=== PATIENT | female | born 1960 | race Caucasian/White ===

== ENCOUNTER 2016-12-11 19:16 | Emergency (ER) | payer OTHER ==
[~2016-12-11] VITALS: Ht 152.4 cm; Wt 70.0 kg
[2016-12-11] MEDS ORDERED: METF850T2 PO (19:49)
[2016-12-11] MEDS ORDERED: MELO-273 PO (19:49)
[2016-12-11] MEDS ORDERED: OMEG100019 PO (19:49)
[2016-12-11] MEDS ORDERED: MET500 PO (19:49)
[2016-12-11] MEDS ORDERED: UNK HTN MED PO (19:49)
[2016-12-11 19:51] LABS: GLUCOSE,POINT OF CARE 139 MG/DL (70-110)
[2016-12-11] MEDS ORDERED: PROCHLORPERAZINE EDISYLATE 5 MG/ML 2 ML VIAL IVP ONE (20:15)
[2016-12-11] MEDS ORDERED: SODIUM CHLORIDE 0.9% 1,000 ML IV ONE (20:15)
[2016-12-11] MEDS ORDERED: DiphenhydrAMINE HCL 50 MG/ML VIAL IVP ONE (20:15)
[2016-12-11 20:29] LABS: BASOPHILS # (AUTO) 0.03 K/uL (0.00-0.20); BASOPHILS % (AUTO) 0.4 % (0.0-2.0); EOSINOPHILS # (AUTO) 0.06 K/uL (0.00-0.70); EOSINOPHILS % (AUTO) 0.82 % (1.0-6.0); HEMATOCRIT 36.4 % (36-46); HEMOGLOBIN 12.2 g/dL (12.0-16.0); LYMPHOCYTES # (AUTO) 1.6 K/uL (1.0-4.8); LYMPHOCYTES % (AUTO) 21.6 % (22.0-44.0); MEAN CORPUSCULAR HEMOGLOBIN 29.2 pg (26.0-34.0); MEAN CORPUSCULAR HGB CONC 33.5 G/dL (31.0-37.0); MEAN CORPUSCULAR VOLUME 87 fL (80-100); MONOCYTES # (AUTO) 0.6 K/uL (0.1-1.0); MONOCYTES % (AUTO) 8.3 % (2.0-9.0); NEUTROPHILS # (AUTO) 5.1 K/uL (1.8-7.7); NEUTROPHILS % (AUTO) 68.9 % (40.0-70.0); PLATELET COUNT (AUTO) 236 K/uL (150-450); RED BLOOD CELL COUNT(AUTO) 4.18 MIL/uL (4.00-5.20); WHITE BLOOD COUNT (AUTO) 7.3 K/uL (4.5-11.0)
[2016-12-11 20:37] LABS: ANION GAP 9 mmol/L (8-16); CALCIUM, TOTAL 10.1 mg/dL (8.8-10.5); CARBON DIOXIDE 28 mmol/L (22-29); CHLORIDE 104 mmol/L (98-107); CREATININE 0.85 mg/dL (0.60-1.30); GLOMERULAR FILTR. RATE CALC > 60 mL/min (>60); POTASSIUM 3.7 mmol/L (3.5-5.1); SODIUM SERUM 141 mmol/L (136-145); UREA NITROGEN, BLOOD 16 mg/dL (7-18)
[2016-12-11 20:43] LABS: ALANINE AMINOTRANSFERASE 70 U/L (12-78); ALBUMIN 4.1 g/dL (3.4-5.0); ASPARTATE AMINOTRANSFERASE 38 U/L (15-37); BILIRUBIN,TOTAL 0.8 mg/dL (0.1-1.0); TOTAL PROTEIN, SERUM 7.4 g/dL (6.4-8.2)
[2016-12-11 21:05] VITALS: BP 133/85
== END 2016-12-11 21:22 | disposition home or self-care (01) ==
LOC: EMS 19:19
DX: G43.909 Migraine, unspecified, not intractable, without status migrainosus (principal); I10 Essential (primary) hypertension; E11.9 Type 2 diabetes mellitus without complications; F17.210 Nicotine dependence, cigarettes, uncomplicated
CPT/HCPCS: 36415; 80053; 82962; 85025; 96361; 96374; 96375; 99284; J0780; J1200; J7030

== ENCOUNTER 2017-03-21 11:48 | Emergency (ER) | payer OTHER ==
[~2017-03-21] VITALS: Ht 152.4 cm; Wt 60.0 kg
[~2017-03-21 11:48] MED LIST: MELO-107 PO; MET500 PO; METF850T2 PO; OMEG-135 PO; UNK HTN MED PO
[2017-03-21 11:58] LABS: GLUCOSE,POINT OF CARE 125 MG/DL (70-110)
[2017-03-21 12:25] VITALS: BP 118/64
[2017-03-21] MEDS ORDERED: FLUORESCEIN SODIUM 1 MG STRIP ONE (12:38)
[2017-03-21] MEDS ORDERED: PROPARACAINE HCL 0.5% 15 ML OPHTHALMIC SOLUTION OS ONE (12:45)
== END 2017-03-21 13:28 | disposition home or self-care (01) ==
LOC: EMS 11:50
DX: H11.32 Conjunctival hemorrhage, left eye (principal); M19.90 Unspecified osteoarthritis, unspecified site; E11.9 Type 2 diabetes mellitus without complications; I10 Essential (primary) hypertension; E78.00 Pure hypercholesterolemia, unspecified; F17.210 Nicotine dependence, cigarettes, uncomplicated
CPT/HCPCS: 82962; 99283

== ENCOUNTER 2017-11-07 18:22 | Emergency (ER) | payer OTHER ==
[~2017-11-07] VITALS: Ht 154.9 cm; Wt 58.2 kg
[2017-11-07 19:40] VITALS: BP 114/76
== END 2017-11-07 19:56 | disposition home or self-care (01) ==
LOC: EMS 18:24
DX: N39.0 Urinary tract infection, site not specified (principal); E11.9 Type 2 diabetes mellitus without complications; E78.00 Pure hypercholesterolemia, unspecified; I10 Essential (primary) hypertension; M19.90 Unspecified osteoarthritis, unspecified site; F17.210 Nicotine dependence, cigarettes, uncomplicated; Z87.440 Personal history of urinary (tract) infections; Z79.899 Other long term (current) drug therapy; Z91.013 Allergy to seafood
CPT/HCPCS: 99283

== ENCOUNTER 2020-06-26 12:34 | Emergency (ER) | payer OTHER ==
[~2020-06-26] VITALS: Ht 149.9 cm; Wt 63.6 kg
[~2020-06-26 12:34] MED LIST changes: -MET500 PO; +METF-445 PO; -METF850T2 PO; +METH500T7 PO
[2020-06-26 12:44] VITALS: BP 125/40
[2020-06-26 13:00] LABS: GLUCOSE,POINT OF CARE 94 MG/DL (70-110)
[2020-06-26] MEDS ORDERED: LIDOCAINE 5% TRANSDERMAL PATCH TD ONE (14:30)
[2020-06-26] MEDS ORDERED: ACETAMINOPHEN 500 MG TABLET PO ONE (14:30)
[2020-06-26] MEDS ORDERED: KETOROLAC TROMETHAMINE 30 MG/ML VIAL IM ONE (14:30)
== END 2020-06-26 16:38 | disposition home or self-care (01) ==
LOC: EMS 12:34
DX: M51.36 Other intervertebral disc degeneration, lumbar region (principal); M43.16 Spondylolisthesis, lumbar region; M47.9 Spondylosis, unspecified; M53.3 Sacrococcygeal disorders, not elsewhere classified; G89.29 Other chronic pain; E11.9 Type 2 diabetes mellitus without complications; E78.00 Pure hypercholesterolemia, unspecified; I10 Essential (primary) hypertension; F17.210 Nicotine dependence, cigarettes, uncomplicated; Z79.84 Long term (current) use of oral hypoglycemic drugs
CPT/HCPCS: 72110; 72220; 82962; 96372; 99284; J1885

== ENCOUNTER 2021-09-21 05:17 | Emergency (ER) | payer OTHER ==
[~2021-09-21] VITALS: Ht 157.5 cm; Wt 53.0 kg
[~2021-09-21 05:17] MED LIST changes: +METH-659 PO; -METH500T7 PO; +OMEG-108 PO; -OMEG-135 PO
[2021-09-21] MEDS ORDERED: ASPI-1444 PO (05:28)
[2021-09-21 05:36] LABS: GLUCOSE,POINT OF CARE 120 MG/DL (70-110)
[2021-09-21 06:01] VITALS: BP 115/70
[2021-09-21] MEDS ORDERED: NITR-75 PO (06:10)
[2021-09-21 06:53] LABS: APPEARANCE,URINE TURBID (CLEAR); PH,URINE >=9.0 (5.0-8.0)
[2021-09-21 06:54] LABS: BILIRUBIN,URINE PRELIM. POSITIVE (NEGATIVE); GLUCOSE, URINE (UA) >=1000 mg/dL (NEGATIVE); KETONES,URINE 40 mg/dL (NEGATIVE); NITRATE,URINE POSITIVE (NEGATIVE); OCCULT BLOOD,URINE LARGE (NEGATIVE); PROTEIN,URINE SEE CONFIRM mg/dL (NEGATIVE); UROBILINOGEN,URINE >=8.0 mg/dL (<=1.0)
[2021-09-21 06:55] LABS: LEUKOCYTE ESTERASE ,URINE LARGE (NEGATIVE)
[2021-09-21 06:56] LABS: SULFOSALICYLIC ACID,URINE 4+ (Negative)
[2021-09-21 06:58] LABS: RBC,URINE Full Field /HPF (0-2)
[2021-09-21 06:59] LABS: BACTERIA,URINE None Seen /HPF (None Seen); SQUAMOUS EPITHELIAL CELL,UR Rare /LPF (None Seen); WBC,URINE 0-2 /HPF (0-5)
== END 2021-09-21 06:22 | disposition home or self-care (01) ==
LOC: EMS 05:18
DX: R31.9 Hematuria, unspecified (principal); I10 Essential (primary) hypertension; E11.9 Type 2 diabetes mellitus without complications; E78.00 Pure hypercholesterolemia, unspecified; F17.210 Nicotine dependence, cigarettes, uncomplicated; Z79.899 Other long term (current) drug therapy
CPT/HCPCS: 81001; 81002; 82962; 99283